=== PATIENT | female | born 1975 | race Caucasian/White ===

== ENCOUNTER → 2022-05-02 | Outpatient (CLI) | payer SELFPAY ==
--- NOTE | 2022-05-02 11:57 | US_ITS ---
STUDY: ULTRASOUND OF THE FEMALE PELVIS - COMPLETE REASON FOR EXAM: Female, 46 years old. family hx ov ca TECHNIQUE: Endovaginal. Transvaginal US was obtained to better visualized the ovaries. COMPARISON: None. FINDINGS: The uterus is retroverted and is in a midline position. The uterus measures 8.7 cm. Normal uterine cervix. The endometrium measures 6.5 mm in thickness, and is heterogeneous (striated). There is no demonstrated endometrial mass. There is no demonstrated myometrial mass. I.U.D. - The patient does not have an I.U.D. The right ovary is visualized. The right ovary measures 3.1 cm. There is no right ovarian cyst or ovarian mass. There is no visualized right adnexal mass or complex lesion. There is normal arterial and normal venous vascularity. The left ovary is visualized. The left ovary measures 2.3 cm. There is no left ovarian cyst or ovarian mass. There is no visualized left adnexal mass or complex lesion. There is normal arterial and normal venous vascularity. There is no fluid in the cul-de-sac. Urinary bladder volume is (in cc) 708. US/Transvaginal Non- IMPRESSION: There are no acute findings. Electronically Signed: Jeremias Ulloa MD at 17:45 EST ,
--- NOTE | 2022-05-02 11:57 | US_ITS ---
STUDY: ULTRASOUND OF THE FEMALE PELVIS - COMPLETE REASON FOR EXAM: Female, 46 years old. family hx ov ca TECHNIQUE: Endovaginal. Transvaginal US was obtained to better visualized the ovaries. COMPARISON: None. FINDINGS: The uterus is retroverted and is in a midline position. The uterus measures 8.7 cm. Normal uterine cervix. The endometrium measures 6.5 mm in thickness, and is heterogeneous (striated). There is no demonstrated endometrial mass. There is no demonstrated myometrial mass. I.U.D. - The patient does not have an I.U.D. The right ovary is visualized. The right ovary measures 3.1 cm. There is no right ovarian cyst or ovarian mass. There is no visualized right adnexal mass or complex lesion. There is normal arterial and normal venous vascularity. The left ovary is visualized. The left ovary measures 2.3 cm. There is no left ovarian cyst or ovarian mass. There is no visualized left adnexal mass or complex lesion. There is normal arterial and normal venous vascularity. There is no fluid in the cul-de-sac. Urinary bladder volume is (in cc) 708. US/Pelvic (Non ) IMPRESSION: There are no acute findings. Electronically Signed: Jeremias Ulloa MD at 17:45 EST ,
== END | disposition home or self-care (01) ==
PROVIDERS: PCP Physician Assistant; Referring Provider Physician Assistant; Visit Provider Physician Assistant
DX: N93.9 Abnormal uterine and vaginal bleeding, unspecified (principal)
CPT/HCPCS: 76830; 76856